=== PATIENT | female | born 1980 | race Caucasian/White ===

== ENCOUNTER 2023-09-15 23:27 | Emergency (ER) | payer SELFPAY ==
[~2023-09-15] VITALS: Ht 154.9 cm; Wt 117.3 kg
[2023-09-15 23:32] VITALS: TEMP 98.2
[2023-09-15 23:44] VITALS: BP 111/72; PULSE 72; RESP 16
[2023-09-16] MEDS: DiphenhydrAMINE HCL 25 MG CAPSULE PO ONE (00:24)
[2023-09-16] MEDS: DOXYCYCLINE HYCLATE 100 MG TABLET PO ONE (00:24)
[2023-09-16] MEDS: CEPHALEXIN MONOHYDRATE 500 MG CAPSULE PO ONE (00:24)
[2023-09-16] MEDS ORDERED: DIPH50CA37 PO (00:33)
[2023-09-16] MEDS ORDERED: IBUP-1554 PO (00:33)
[2023-09-16] MEDS ORDERED: CEPH-558 PO (00:33)
[2023-09-16] MEDS ORDERED: DOXY-354 PO (00:33)
== END 2023-09-16 02:14 | disposition home or self-care (01) ==
LOC: EMS 23:27
DX: S80.861A Insect bite (nonvenomous), right lower leg, initial encounter (principal); Z98.890 Other specified postprocedural states; W57.XXXA Bitten or stung by nonvenomous insect and other nonvenomous arthropods, initial encounter; Y93.89 Activity, other specified; Y92.89 Other specified places as the place of occurrence of the external cause; Y99.8 Other external cause status
CPT/HCPCS: 99284; Z7502; Z7610